=== PATIENT | female | born 1935 | race Caucasian/White ===

== ENCOUNTER 2017-09-06 23:03 | Inpatient (IN) | payer OTHER ==
[2017-09-06] MEDS ORDERED: LABETALOL HCL 5 MG/ML 20 ML MDV ONE (23:08)
[2017-09-06] MEDS ORDERED: niCARdipine/NACL/200 ML BAG IV ONE (23:08)
[2017-09-06] MEDS ORDERED: IOPAMIDOL (ISOVUE 370) 100 ML BTL IV ONE (23:12)
[2017-09-06 23:18] LABS: % IMMATURE GRANULYOCYTES 0.3 % (0.0-1.1); ABSOLUTE IMMATURE GRANULOCYTES 0.03 10^3/uL (0.00-0.10); ADD DIFF? NO; ADD MORPH? NO; ADD SCAN? NO; ATYPICAL LYMPHOCYTE FLAG 0 (0-99); FRAGMENT RBC FLAG 0 (0-99); HEMATOCRIT 39.3 % (38.0-47.0); HEMOGLOBIN 13.9 g/dL (12.6-16.3); LEFT SHIFT FLG 0 (0-99); LIPEMIA HEMOLYSIS FLAG 90 (0-99); MEAN CELL HEMOGLOBIN 33.8 pg (27.9-34.1); MEAN CELL HEMOGLOBIN CONCENTR. 35.4 g/dL (32.4-36.7); MEAN CELL VOLUME 95.6 fL (81.5-99.8); MEAN PLATELET VOLUME 10.1 fL (8.7-11.7); PLATELET CLUMPS FLAG 0 (0-99); PLATELET COUNT 256 10^3/uL (150-400); RED BLOOD CELL COUNT 4.11 10^6/uL (4.18-5.33); RED CELL DISTRIBUTION WIDTH 13.8 % (11.5-15.2)
--- NOTE | 2017-09-06 23:18 | EDPHY ---
H & P HPI/ROS: Chief Complaint: Stroke HPI: 82-year-old woman being transferred from [facility] with a stroke. Patient arrived there with right-sided weakness and neglect. Initial NIH scale or was 16. She had a noncontrast CT of the head which was unremarkable. She was given tPA. The tPA just finished prior to arrival here. Per EMS patient was last seen normal by family yesterday. There was a phone call to her earlier this evening where she was apparently unintelligible. Patient is currently non verbal and unable to provide any further history. Unavailable secondary to the patient's inability to speak PMH: Hypertension Social History: Unknown Family History: non-contributory Physical Exam: Gen: Awake, Alert HEENT: Nose: no rhinorrhea Eyes: PERRLA, EOMI Mouth: Moist mucosa Neck: Supple, no JVD Chest: nontender, lungs clear to auscultation Heart: S1, S2 normal, no murmur Abd: Soft, non-tender, no guarding Back: no CVA tenderness, no midline tenderness Ext: no edema, non-tender Skin: no rash Neuro: See NIH stroke score Constitutional: Initial Vital Signs Heart Rate 70 09/06/17 23:15 Respiratory Rate 23 H 09/06/17 23:15 Blood Pressure 220/121 H 09/06/17 23:15 O2 Sat (%) 97 09/06/17 23:15 O2 Delivery Mode Nasal Cannula O2 (L/minute) 2 Allergies/Adverse Reactions: No Known Allergies Allergy (Unverified 09/06/17 23:33) Home Medications: Medication Instructions Recorded Atorvastatin Calcium 09/06/17 CALCIUM CARBONATE 09/06/17 Freestyle Precision Jermaine 09/06/17 Januvia 50 mg 09/06/17 Lumigan 0.01% (*) 09/06/17 Multivit,Min/Folic Acid/Zcm586 09/06/17 Ritalin 20mg (*) 09/06/17 Synthroid 75 mcg (*) 09/06/17 Vitamin D3 09/06/17 Medical Decision Making - Diagnostics Imaging Results: Imaging Impressions Head CT 09/06/17 23:10 Impression: There is no acute intracranial abnormality identified on this unenhanced CT evaluation. If there is further clinical concern regarding the patient's symptoms, MR imaging is suggested, if not otherwise contraindicated. Findings were discussed with George Johnson MD at 23:19, on 09/06/2017. Head CTA 09/06/17 23:10 Impression: 1. 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 2. Atherosclerotic calcific plaque at the level of each carotid bulb and bifurcation, however there is no hemodynamically significant stenosis involving the cervical portions of the internal carotid arteries (exceeding 50% MDS). CT ANGIOGRAPHY OF THE HEAD: The major vessels of the [place] demonstrate no evidence of an aneurysm, vascular malformation, flow-limiting stenosis, or occlusion. The distal cervical, petrous, cavernous, and the supraclinoid portions of the internal carotid arteries maintain flow, although there is a moderate amount of eccentric calcific plaque involving the parasellar aspects of the ICAs and the proximal supraclinoid portions. There is a small eccentric calcific plaque seen in the distal left M1 segment, resulting in a mild eccentric stenosis. There is no intra-arterial thrombus identified. There is blood flow identified in the M2 and M3 trifurcation vessels. The A1 and A2 segments are patent, and there is no abnormality at the anterior communicating artery. The distal cervical portions of the vertebral arteries are patent. There is eccentric calcific plaque involving the posterior margin of the right vertebral artery at the skull base, however each vertebral artery remains patent and provides inflow to the basilar artery, which is normal in size. The posterior inferior cerebellar arteries and the superior cerebellar arteries are patent. The basilar tip is patent. The posterior cerebral arteries are patent. 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 The superior sagittal sinus, transverse sinuses, and major veins demonstrate no evidence of intraluminal thrombi. Impression: Atherosclerotic features, with no hemodynamically significant stenosis or acute intra-arterial thrombus. Note: All stenoses are measured using NASCET criteria. Findings were discussed with George Johnson MD at 11:50 PM, on 09/06/2017. Neck CTA 09/06/17 23:11 Impression: 1. 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 2. Atherosclerotic calcific plaque at the level of each carotid bulb and bifurcation, however there is no hemodynamically significant stenosis involving the cervical portions of the internal carotid arteries (exceeding 50% MDS). CT ANGIOGRAPHY OF THE HEAD: The major vessels of the [place] demonstrate no evidence of an aneurysm, vascular malformation, flow-limiting stenosis, or occlusion. The distal cervical, petrous, cavernous, and the supraclinoid portions of the internal carotid arteries maintain flow, although there is a moderate amount of eccentric calcific plaque involving the parasellar aspects of the ICAs and the proximal supraclinoid portions. There is a small eccentric calcific plaque seen in the distal left M1 segment, resulting in a mild eccentric stenosis. There is no intra-arterial thrombus identified. There is blood flow identified in the M2 and M3 trifurcation vessels. The A1 and A2 segments are patent, and there is no abnormality at the anterior communicating artery. The distal cervical portions of the vertebral arteries are patent. There is eccentric calcific plaque involving the posterior margin of the right vertebral artery at the skull base, however each vertebral artery remains patent and provides inflow to the basilar artery, which is normal in size. The posterior inferior cerebellar arteries and the superior cerebellar arteries are patent. The basilar tip is patent. The posterior cerebral arteries are patent. 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 The superior sagittal sinus, transverse sinuses, and major veins demonstrate no evidence of intraluminal thrombi. Impression: Atherosclerotic features, with no hemodynamically significant stenosis or acute intra-arterial thrombus. Note: All stenoses are measured using NASCET criteria. Findings were discussed with George Johnson MD at 11:50 PM, on 09/06/2017. ED Course/Re-evaluation: Patient arrived as a stroke alert [place] [facility] [place] receiving thrombolytics. Initial NIH of 16. NIH now is 9. I have discussed with , [facility] Neurology. CT scan noncontrast here shows no bleed. Will proceed with the CT angiogram. CT angio is negative for acute thrombus. There is some atherosclerotic disease. Again discussed with Dr. Roberts. He has evaluated the patient via telemedicine. He does not feel the patient will require transfer to [facility]. Patient will be admitted to the ICU for further care post CVA and thrombolysis. Case discussed with Dr. Land, hospitalist. He will admit to the ICU for further care. Critical Care Time: I spent a total of 40 minutes of critical care time in obtaining history, performing a physical exam, bedside monitoring of interventions, collecting and interpreting tests and discussion with consultants but not including time spent performing procedures. - Data Points Laboratory Results: Laboratory Results 09/06/17 23:10 09/06/17 23:10 09/06/17 09/06/17 09/06/17 23:10 23:10 23:10 WBC 10.23 10^3/uL H 10^3/uL (3.80-9.50) RBC 4.11 10^6/uL L 10^6/uL (4.18-5.33) Hgb 13.9 g/dL g/dL (12.6-16.3) Hct 39.3 % % (38.0-47.0) MCV 95.6 fL fL (81.5-99.8) MCH 33.8 pg pg (27.9-34.1) MCHC 35.4 g/dL g/dL (32.4-36.7) RDW 13.8 % % (11.5-15.2) Plt Count 256 10^3/uL 10^3/uL (150-400) MPV 10.1 fL fL (8.7-11.7) Neut % (Auto) 65.7 % % (39.3-74.2) Lymph % (Auto) 16.6 % % (15.0-45.0) Sharkey % (Auto) 11.2 % % (4.5-13.0) Eos % (Auto) 5.6 % % (0.6-7.6) Baso % (Auto) 0.6 % % (0.3-1.7) Nucleat RBC Rel Count 0.0 % % (0.0-0.2) Absolute Neuts (auto) 6.72 10^3/uL H 10^3/uL (1.70-6.50) Absolute Lymphs (auto) 1.70 10^3/uL 10^3/uL (1.00-3.00) Absolute Monos (auto) 1.15 10^3/uL H 10^3/uL (0.30-0.80) Absolute Eos (auto) 0.57 10^3/uL H 10^3/uL (0.03-0.40) Absolute Basos (auto) 0.06 10^3/uL 10^3/uL (0.02-0.10) Absolute Nucleated RBC 0.00 10^3/uL 10^3/uL (0-0.01) Immature Gran % 0.3 % % (0.0-1.1) Immature Gran # 0.03 10^3/uL 10^3/uL (0.00-0.10) PT 13.4 SEC SEC (12.0-15.0) INR 1.03 (0.83-1.16) APTT 23.7 SEC SEC (23.0-38.0) Sodium 140 mEq/L mEq/L (134-144) Potassium 4.4 mEq/L mEq/L (3.5-5.2) Chloride 101 mEq/L mEq/L (97-110) Carbon Dioxide 28 mEq/l mEq/l (22-31) Anion Gap 11 mEq/L mEq/L (8-16) BUN 27 mg/dL H mg/dL (7-23) Creatinine 1.3 mg/dL H mg/dL (0.6-1.0) Estimated GFR 39 Glucose 197 mg/dL H mg/dL (70-100) Calcium 9.7 mg/dL mg/dL (8.5-10.4) Departure - Departure Disposition: [facility] Inpatient Acute Clinical Impression: Acute ischemic stroke Condition: Serious Referrals: Patient,NotPresent [Primary Care Provider] - As per Instructions NIH Stroke Scale Date of Exam: 09/06/17 Time of Exam: 23:05 Level of Consciousness: Alert LOC Questions: Answers None LOC Commands: Performs Both Correctly Best Gaze: Partial Gaze Palsy Visual: No Visual Loss Facial Palsy: Partial Paralysis Motor Arm-Left: No Drift Motor Arm-Right: No Drift Motor Leg-Left: No Drift Motor Leg-Right: No Drift Limb Ataxis: Absent Sensory: Normal Best Language: Severe Aphasia Dysarthria: Severe Dysarthria Extinction and Inattention (Neglect): No Abnormality NIH Scale Score: 9
[2017-09-06 23:26] LABS: INR 1.03 (0.83-1.16); PROTIME(PATIENT) 13.4 SEC (12.0-15.0)
[2017-09-06 23:27] LABS: APTT 23.7 SEC (23.0-38.0)
[2017-09-06 23:29] LABS: ANION GAP 11 mEq/L (8-16); CALCIUM 9.7 mg/dL (8.5-10.4); CARBON DIOXIDE 28 mEq/l (22-31); CHLORIDE 101 mEq/L (97-110); CREATININE 1.3 mg/dL (0.6-1.0); GLOMERULAR FILTRATION RATE 39; GLUCOSE 197 mg/dL (70-100); POTASSIUM 4.4 mEq/L (3.5-5.2); SODIUM 140 mEq/L (134-144)
--- NOTE | 2017-09-07 00:48 | CPEKG ---
Heart Rate: 64 RR Interval: 938 P-R Interval: 220 QRSD Interval: 84 QT Interval: 432 QTC Interval: 446 P Dille: 71 QRS Dille: 2 T Wave Dille: 75 EKG Severity - ABNORMAL ECG - EKG Impression: SINUS RHYTHM EKG Impression: FIRST DEGREE AV BLOCK EKG Impression: BORDERLINE R WAVE PROGRESSION, ANTERIOR LEADS Electronically Signed By: George Johnson 07-Sep-2017 06:45:04
--- NOTE | 2017-09-07 00:49 | PDCONSULT ---
[facility] Note: [place] [facility] Note Demographics Consult Type Acute Stroke First Name Liza Last Name Renata Date of 1935 Age: 82 Gender Female Referring Provider Dr Johnson Time of initial page (): 09/06/2017 23:18 Time of return call (): 09/06/2017 23:19 Time Ready to Initiate Telemed Consult (): 09/06/2017 23:20 HPI 82 year old who initially presented to [facility] with stroke symptoms. She had tried to call a family member in the afternoon but could not talk on the phone that family member came over to the house and recognized her stroke symptoms with Aphasia and right-sided weakness. Based on TV shows on TV and the snacks that she had recently eaten they figured out what time her symptoms must have started. TPA was given and she was transported to [facility] at the present time she has partial Improvement of her symptoms with better mobility of her right side of her body and better ability to understand and respond to others. She is still having significant expressive language difficulty. She is seen on telemedicine camera after a CT angiogram was performed Exam Vitals: vital signs reviewed Mental Status: awake, follows commands Language: expressive aphasia Cranial Nerves extra ocular movements intact, facial droop right Motor: normal bulk, R upper extremity weakness Sensory: normal sensation Cerebellar: normal cerebellar NIHSS Time (): 09/07/2017 00:05 LOC 1a: 0 = Alert; keenly responsive LOC 1b: 2 = Answers neither questions correctly LOC Commands: 2 = Performs neither task correctly Best Gaze: 0 = Normal Visual: 0 = No visual loss Facial Palsy 2 = Partial paralysis (total or near-total paralysis of lower face ) Motor Arm L: 0 = No drift; limb holds 90 (or 45) degrees for full 10 seconds Motor Arm R: 1 = Drift; limb holds 90 (or 45) degrees, but drifts down before full 10 seconds; does not hit bed or other support Motor Leg L: 0 = No drift; leg holds 30-degree position for full 5 seconds Motor Leg R: 0 = No drift; leg holds 30-degree position for full 5 seconds Limb Ataxia 0 = Absent Sensory: 0 = Normal; no sensory loss Best Language: 2 = Severe aphasia; all communication is through fragmentary expression Dysarthria: 2 = Severe dysarthria; patient's speech is so slurred as to be unintelligible Extinction + Inattention: 0 = No abnormality NIHSS: [address]: no bleed, early infarction with loss of mancera-white definition in insula and left lateral frontal lobe. CTA Head no large vessel occlusion CTA Neck patent vessels Assessment: Acute Ischemic Stroke, Left MCA stroke, s/p IV tPA in [place] with partial improvement of her syndrome. There is early infarction present c/w her symptoms and no large artery occlusion; therefore, no thrombectomy is indicated. Plan Labs HgbA1c, Lipid Panel Imaging MRI brain without Diagnostic test echocardiogram with bubble Therapy/Eval NPO until cleared by swallow evaluation, PT/OT, Speech/Swallow therapy consult tPA Administration Recommendations: BP goal< 180/100 for 24hrs post tPA administration, Use Labetolol 10-20mg IV prn or Nicardipine gtt to maintain BP parameters, No antiplatelets or anticoagulants for next 24 hrs unless indicated for emergent IA procedure or other life threatening situation, ICU admission Other telemetry monitoring, I have discussed my recommendations with the referring provider Disposition transfer to ICU
[2017-09-07] MEDS ORDERED: ONDANSETRON DISINTEGRATING 4 MG TAB PO PRN (01:11)
[2017-09-07] MEDS ORDERED: ACETAMINOPHEN 325 MG TAB PO PRN (01:11)
[2017-09-07] MEDS ORDERED: ONDANSETRON 4 MG/2 ML VIAL IVP PRN (01:11)
[2017-09-07] MEDS: NS 1,000 ML IV SCH ×2 (01:16→08:58)
--- NOTE | 2017-09-07 01:48 | PDGENHP ---
History and Physical - Chief Complaint Stroke - History of Present Illness 82 yo F w/ DM and HTN presents after acute stroke. Patient was last seen normal at 3 PM. Patient herself symptoms of difficulty speaking and right sided weakness started around 7 PM. She presented to a hospital in [place] where she was give t-Pa around 9:30 with a NIHSS of 16 around that time. Upon arrival here her R sided weakness had improved and NIHSS documented by neurologist via camera was 11. At the time of my evaluation patient with persistent, severe aphasia and dysarthria, subtle R facial droop, and mild RUE dysmetria. She follows commands and communicates with hand signals effectively. History Information - Allergies/Home Medication List Allergies/Adverse Reactions: No Known Allergies Allergy (Unverified 09/06/17 23:33) Home Medications: Atorvastatin Calcium 09/06/17 [Last Taken Unknown] CALCIUM CARBONATE 09/06/17 [Last Taken Unknown] Freestyle Precision Jermaine 09/06/17 [Last Taken Unknown] Januvia 50 mg 09/06/17 [Last Taken Unknown] Lumigan 0.01% (*) 09/06/17 [Last Taken Unknown] Multivit,Min/Folic Acid/Ymg431 09/06/17 [Last Taken Unknown] Ritalin 20mg (*) 09/06/17 [Last Taken Unknown] Synthroid 75 mcg (*) 09/06/17 [Last Taken Unknown] Vitamin D3 09/06/17 [Last Taken Unknown] I have personally reviewed and updated: family history, medical history - Past Medical History diabetes type 2, hypertension - Family History Negative for: stroke - Social History Smoking Status: Unknown if ever smoked Review of Systems Review of Systems: ROS: 10pt was reviewed & negative except for what was stated in HPI & below Physical Exam Physical Exam: Temp Pulse Resp BP Pulse Ox 36.7 C 60 19 172/60 H 94 09/07/17 00:45 09/07/17 01:00 09/07/17 01:00 09/07/17 01:00 09/07/17 01:00 Constitutional: no apparent distress, not in pain Eyes: PERRL, EOMI Ears, Nose, Mouth, Throat: moist mucous membranes, no oral mucosal ulcers Cardiovascular: regular rate and rhythym, no murmur, rub, or gallop Respiratory: no respiratory distress, no rales or rhonchi Gastrointestinal: normoactive bowel sounds, soft, non-tender abdomen Skin: warm, normal color Musculoskeletal: no muscle tenderness, No muscular tenderness Neurologic: other (NIHSS 8 for aphasia, dysrathria, subtle R facial droop, and RUE dysmetria) Psychiatric: interacting appropriately, not anxious Lab Data & Imaging Review 09/06/17 23:10 09/06/17 23:10 WBC 10.23 10^3/uL (3.80-9.50) H 09/06/17 23:10 RBC 4.11 10^6/uL (4.18-5.33) L 09/06/17 23:10 Hgb 13.9 g/dL (12.6-16.3) 09/06/17 23:10 Hct 39.3 % (38.0-47.0) 09/06/17 23:10 MCV 95.6 fL (81.5-99.8) 09/06/17 23:10 MCH 33.8 pg (27.9-34.1) 09/06/17 23:10 MCHC 35.4 g/dL (32.4-36.7) 09/06/17 23:10 RDW 13.8 % (11.5-15.2) 09/06/17 23:10 Plt Count 256 10^3/uL (150-400) 09/06/17 23:10 MPV 10.1 fL (8.7-11.7) 09/06/17 23:10 Neut % (Auto) 65.7 % (39.3-74.2) 09/06/17 23:10 Lymph % (Auto) 16.6 % (15.0-45.0) 09/06/17 23:10 Bowie % (Auto) 11.2 % (4.5-13.0) 09/06/17 23:10 Eos % (Auto) 5.6 % (0.6-7.6) 09/06/17 23:10 Baso % (Auto) 0.6 % (0.3-1.7) 09/06/17 23:10 Nucleat RBC Rel Count 0.0 % (0.0-0.2) 09/06/17 23:10 Absolute Neuts (auto) 6.72 10^3/uL (1.70-6.50) H 09/06/17 23:10 Absolute Lymphs (auto) 1.70 10^3/uL (1.00-3.00) 09/06/17 23:10 Absolute Monos (auto) 1.15 10^3/uL (0.30-0.80) H 09/06/17 23:10 Absolute Eos (auto) 0.57 10^3/uL (0.03-0.40) H 09/06/17 23:10 Absolute Basos (auto) 0.06 10^3/uL (0.02-0.10) 09/06/17 23:10 Absolute Nucleated RBC 0.00 10^3/uL (0-0.01) 09/06/17 23:10 Immature Gran % 0.3 % (0.0-1.1) 09/06/17 23:10 Immature Gran # 0.03 10^3/uL (0.00-0.10) 09/06/17 23:10 PT 13.4 SEC (12.0-15.0) 09/06/17 23:10 INR 1.03 (0.83-1.16) 09/06/17 23:10 APTT 23.7 SEC (23.0-38.0) 09/06/17 23:10 Sodium 140 mEq/L (134-144) 09/06/17 23:10 Potassium 4.4 mEq/L (3.5-5.2) 09/06/17 23:10 Chloride 101 mEq/L (97-110) 09/06/17 23:10 Carbon Dioxide 28 mEq/l (22-31) 09/06/17 23:10 Anion Gap 11 mEq/L (8-16) 09/06/17 23:10 BUN 27 mg/dL (7-23) H 09/06/17 23:10 Creatinine 1.3 mg/dL (0.6-1.0) H 09/06/17 23:10 Estimated GFR 39 09/06/17 23:10 Glucose 197 mg/dL (70-100) H 09/06/17 23:10 Calcium 9.7 mg/dL (8.5-10.4) 09/06/17 23:10 Imaging Review: CT head without hemorrhage; CTA Head/neck shows stenosis or R vertebral artery and atherosclerosis of b/l carotid bulbs without hemodynamic compromise. Visualized and Interpreted EKG results: Yes EKG Interpretation: Positive for: normal sinsus rhythm Assessment & Plan Assessment: 82 yo F w/ HTN and DM presents with acute ischemic stroke, now s/p t-PA. Plan: 1. Acute ischemic stroke - NIHSS 16 at time of presentation to [facility]; 11 on arrival here and 8 on my evaluation. She continues to demonstrate severe aphasia , dysarthria, and subtle R facial droop. She received t-PA around [address] without hemorrhage, CTA head/neck with R vertebral stenosis and b/l carotid bulb atherosclerosis but no acute culprit lesion identified. ECG in NSR on admission. - Admit to ICU for 24 hours post t-PA - Monitor on telemetry - Maintain BP <108/105 for 24 hours - MRI Brain, TTE w/ bubble ordered - Check lipid panel, A1c with morning labs - PT/OT/CHARACTER IMPERSONATOR evaluations - Will start ASA 325 mg qD 09/08(at least 24 hours post t-PA) - High intensity statin indicated 2. DM - Unknown control, patient on Januvia as outpatient. Checking A1c, will manage with SSI standard dose. 3. Hypothyroid - On LTX as outpatient 4. HTN - Does not appear to be on medications for this per list provided. Acute control as above. Diet - NPO pending swallow evaluation Code - Full Ppx - SCDs Dispo - Admit to ICU, observation status
[2017-09-07] MEDS ORDERED: D10W 250 ML PRN HYPOGLYCEMIA IV (02:30)
[2017-09-07 05:01] LABS: % IMMATURE GRANULYOCYTES 0.1 % (0.0-1.1); ABSOLUTE IMMATURE GRANULOCYTES 0.01 10^3/uL (0.00-0.10); ADD DIFF? NO; ADD MORPH? NO; ADD SCAN? NO; ATYPICAL LYMPHOCYTE FLAG 10 (0-99); FRAGMENT RBC FLAG 0 (0-99); HEMATOCRIT 35.9 % (38.0-47.0); HEMOGLOBIN 12.3 g/dL (12.6-16.3); LEFT SHIFT FLG 0 (0-99); LIPEMIA HEMOLYSIS FLAG 90 (0-99); MEAN CELL HEMOGLOBIN 33.1 pg (27.9-34.1); MEAN CELL HEMOGLOBIN CONCENTR. 34.3 g/dL (32.4-36.7); MEAN CELL VOLUME 96.5 fL (81.5-99.8); MEAN PLATELET VOLUME 10.2 fL (8.7-11.7); PLATELET CLUMPS FLAG 0 (0-99); PLATELET COUNT 236 10^3/uL (150-400); RED BLOOD CELL COUNT 3.72 10^6/uL (4.18-5.33); RED CELL DISTRIBUTION WIDTH 13.8 % (11.5-15.2)
[2017-09-07 05:14] LABS: ANION GAP 10 mEq/L (8-16); CALCIUM 9.1 mg/dL (8.5-10.4); CARBON DIOXIDE 23 mEq/l (22-31); CHLORIDE 108 mEq/L (97-110); CREATININE 1.2 mg/dL (0.6-1.0); GLOMERULAR FILTRATION RATE 43; GLUCOSE 143 mg/dL (70-100); POTASSIUM 4.7 mEq/L (3.5-5.2); SODIUM 141 mEq/L (134-144)
[2017-09-07] MEDS: INSULIN LISPRO 100 UNIT/ML SC SCH ×3 (08:27→19:17)
[2017-09-07] MEDS: ATORVASTATIN CALCIUM 40 MG TAB PO SCH (09:01)
[2017-09-07 09:24] LABS: HEMOGLOBIN A1C 8.4 % (4.0-6.0)
--- NOTE | 2017-09-07 10:11 | GCON ---
[f rep st] CONSULTATION NEUROLOGIC CONSULTATION REFERRING PHYSICIAN: Babatunde Souza MD HISTORY: The patient is an 82-year-old woman whom I am asked to see in neurologic consultation elvis ching acute stroke. She was doing well yesterday, with the last known normal of around 3 p.m.. Kae y was speaking to her around 7:00 p.m., when she apparently developed impaired speech and had right-s ided weakness. She went to [place], where she got tPA around 9:30 and had an NIH Stroke Scale doc umented at 16. She was then transferred to our institution, and Stroke Neurology documented NIH Stro ke Scale of 11. She has had imaging showing no acute hemorrhage or stroke, and no severe large-vesse l stenoses. She has remained aphasic, but the right-sided weakness has much improved. The patient can't effectively communicate for more history. PAST MEDICAL HISTORY: Obtained from reviewing the medical records available to me. There is type 2 diabetes and hypertension. FAMILY HISTORY: Negative for stroke. We do not know about smoking or alcohol consumption. HOME MEDICATIONS: Include a statin, Januvia, Lumigan, Ritalin, Synthroid, vitamin D. Aspirin is not listed, but I am not sure if that is something she takes or does not take. In the hospital, she has received tPA and can start aspirin tomorrow, but not for the first 24 hours. PHYSICAL EXAMINATION: VITAL SIGNS: Blood pressure 151/47, pulse of 54, respirations 12, temperature 36.6. GENERAL: She is well developed, in no acute distress. NECK: Supple with no bruits or hubert s. CARDIAC: Regular rate and rhythm. No murmur. NEUROLOGIC: Awake and alert. Orientation questi ons are characterized by limited aphasia, but seems to recognize month and year and general location. She scores an NIH Stroke Scale of 6. She has severe aphasia, which is predominantly expressive, bu t can mouth a few words with dysarthria. Pupils 3 mm and reactive. No visual field loss. Extraocul ar movements are intact. Normal facial sensations and strength on the left. Sensation on the right is probably intact. On the right, there is a mild facial droop. Palate elevates symmetrically. Ton tabitha protrudes midline. Hearing preserved. Motor exam: There is no drift in the upper or lower extr emities, although there is mild weakness in the right arm and right leg, relative to the left, with s ome limitation on resistance. However, this does not drop her NIH stroke scale. The sensation is al so seemingly intact. Reflexes 1+. Right Babinski sign. The labs were reviewed, as well as diagnostic studies. IMPRESSION: Total unit time of 55 minutes. The patient has a [employer] Stroke S blaze of 6 and has had an acute left middle cerebral artery territory ischemic infarction, without any evidence of a large-vessel occlusion on current imaging. PLAN: She received tPA and will be continued in the ICU for the next 12 hours, or 24 hours for stabi lity, and then to the floor and begin rehab therapies. Prognosis is getting better because of the im provement that we are seeing already on the right side, but she still has profound aphasia, and we do not know the ultimate outcome of that yet. Aspirin will be appropriate after 24 hours, and resume h er statin therapy. She is currently n.p.o. because of failing swallowing study at bedside. /[id number]/MODL
--- NOTE | 2017-09-07 11:47 | GCON ---
[f rep st] CONSULTATION REASON FOR ADMISSION: Acute stroke. HISTORY OF PRESENT ILLNESS: The patient is a very pleasant 82-year-old white female with a past [facility] history of hypothyroidism, hypertension, and type 2 diabetes. She was transferred from [facility] after suffering an acute stroke. She was given tPA and subsequently transferred here. Sh clovis initially had significant right-sided weakness, and this has improved. She still continues to have significant aphasia and a right facial droop. Patient is awake and alert and is able answer yes/no questions. She is not currently in any pain and is not breathless but is somewhat frustrated with in ability to communicate. PAST MEDICAL HISTORY: Significant for diabetes, hypertension, hypothyroidism. ALLERGIES: None known to medications. SOCIAL HISTORY: No history of tobacco use. No history of alcohol use. PHYSICAL EXAMINATION: VITAL SIGNS: Blood pressure 156/62, pulse 51, respirations 15, temperature 36 .6, oxygen saturation 93% on room air. GENERAL: She is a well-developed, well-nourished, elderly wh ite female, who is resting comfortably in no acute distress HEENT: Eyes are PERRLA, EOMI. Throat sh ows no erythema or tonsillar hypertrophy. NECK: Supple. There is no cervical adenopathy. HEART: Regular rate and rhythm with a 2/6 systolic murmur at the left sternal border without radiation. DANELLE GS: Diminished breath sounds but no wheeze. ABDOMEN: Soft, nontender. Bowel sounds are present in all 4 quadrants. EXTREMITIES: No clubbing, cyanosis, or edema. NEURO: Patient is mostly aphasic; is able to verbalize yes/no. She has some right upper extremity weakness. LABORATORIES: White count is 8.7, hemoglobin 12, hematocrit 35, platelet count is 236. Sodium 141, potassium 4.7, chloride 108, CO2 23, BUN 24, creatinine 1.2, glucose 143. IMPRESSION: 1. Acute stroke. 2. Aphasia. 3. Right upper extremity weakness. 4. Diabetes. 5. Hypothyroidism. 6. Hypertension. RECOMMENDATIONS: 1. Will continue the patient in the intensive care unit for 24 total hours. 2. PT and OT. 3. Speech to see. 4. DVT and PE prophylaxis. 5. Stress ulcer prophylaxis. 6. Neurology has seen the patient. /[id number]/MODL
--- NOTE | 2017-09-07 11:48 | HOSPPROG ---
Hospitalist Progress Note Assessment/Plan: 82 yo F w/ HTN and DM new to my care 09/07 presents with acute right sided weakness and aphasia found to have: #. Acute ischemic stroke s/p TPA with improving right sided weakness and persistent Broca's aphasia -Continue ICU care for 24 hours post tpa -repeat MR pending -neuro consult reviewed -continue asa/statin/bp control -cont pt/ot # Dysphagia -pt failed bedside swallow. -npo for now -cont st #h/o htn -main sbp<180 x 24 hours # DM a1c not at goal (8.4) -cont to monitor sugar and treat per protocol # Hypothyroid -will start iv levothyroxine at 1/2 normal po dose Diet - NPO pending swallow evaluation Code - Full Ppx - SCDs Dispo - Admit to ICU, change to inpatient status Subjective: improving right sided strength. still with dense aphasia Objective: Vital Signs Temp Pulse Resp BP Pulse Ox 36.6 C 56 L 17 152/61 H 95 09/07/17 10:15 09/07/17 11:15 09/07/17 11:15 09/07/17 11:15 09/07/17 11:15 Laboratory Results 09/07/17 04:55 09/07/17 04:55 09/06/17 09/07/17 09/08/17 05:59 05:59 05:59 Intake Total 1200 Output Total 675 Balance 525 PT 13.4 SEC (12.0-15.0) 09/06/17 23:10 INR 1.03 (0.83-1.16) 09/06/17 23:10 - Physical Exam Constitutional: no apparent distress, appears nourished, not in pain Cardiovascular: regular rate and rhythym, no murmur, rub, or gallop Respiratory: no respiratory distress, no rales or rhonchi, clear to auscultation Gastrointestinal: normoactive bowel sounds, soft, non-tender abdomen, no palpable masses Neurologic: AAOx3, CN II-XII Intact, other (dense aphasia), No facial droop ICD10 Worksheet Patient Problems: Problems Problem Status Onset Acute ischemic stroke Acute
--- NOTE | 2017-09-07 12:42 | PDMN ---
Medical Necessity Medical necessity: Pt meets INPT criteria per MD. Est. LOS >2 MN for eval/tx of acute ischemic stroke s/p TPA with improving R-sided weakness and persistent Broca's aphasia, dysphagia; hx DM, hypothyroid per MD progress note 09/07/17.
--- NOTE | 2017-09-07 15:59 | ECHO ---
[email or web address] [address] Main: [phone] Fax: Transthoracic Echocardiogram Name: YAO GUZMAN MR#: [id number] Study Date: 09/07/2017 Study Time: 08:21 AM Date of : 1935 Age: 82 year(s) Height: 167.6 cm (66 in.) Weight: 83.92 kg (185 lb.) BSA: 1.93 m2 Gender: Female Examination: Echo Indication: Acute Ischemic Stroke, eval for embolic source Image Quality: Contrast: Requested by: Babatunde Cortez BP: 142 mmHg/46 mmHg Heart Rate: Rhythm: Normal sinus rhythm Indication: Acute Ischemic Stroke, eval for embolic source Procedure Staff Cloth Covered Helmet Puller: Damien Fernandez Reading Physician: Dewayne Peres Requesting Provider: Conclusions: Global hypercontractility of the left ventricle. EF is 76 %. There is mild focal basilar anteroseptal hypertrophy with no flow gradient. An agitated saline study was performed and was negative for intracardiac shunting. Trivial to mild mitral regurgitation. Mild aortic cusp calcification is noted. Mild tricuspid regurgitation is present. Measurements: Chambers Valvular Assessment AV/MV Valvular Assessment TV/PV Normal Normal Normal Name Value Range Name Value Range Name Value Range Ao Oralia (MM): 2.6 cm (2.2 cm-3.7 AV Vmax: 1.06 m/s (1 m/s-1.7 TR Vmax: 3.16 mm/s ( - ) cm) m/s) TR PGmax: 40 mmHg ( - ) IVSd (2D): 0.8 cm (0.6 cm-1.1 AV maxP mmHg ( - ) syst. PAP: 45 mmHg ( - ) cm) LVOT Vmax: 1.07 m/s (0.7 m/s-1.1 LVDd (2D): 3.4 cm (3.9 cm-5.3 m/s) cm) MV E Vmax: 0.93 m/s ( - ) LVDs (2D): 1.9 cm (2.1 cm-4 MV A Vmax: 1.12 m/s ( - ) cm) MV E/A: 0.83 ( - ) LVPWd (2D): 1.0 cm ( - ) LVEF (2D): 76 (>=54 %) Continued Measurements: Chambers Valvular Assessment AV/MV Valvular Assessment TV/PV Name Value Name Value Name Value LADs Lon.1 cm MV E/E' Septal: 18.80 CVP (est.): 5 mmHg LA Area: 15.8 cm2 MV E/E' Lateral: 19.90 Patient: YAO GUZMAN Study Date: 09/07/2017 Page 1 of 2 08:21 AM LA Volume: 40 ml LA Volume Index: 20.7 ml/m2 Findings: Left Ventricle: Normal size left ventricle. Global hypercontractility of the left ventricle. EF is 76 %. No regional wall motion abnormality. There is mild focal basilar anteroseptal hypertrophy with no flow gradient.Diastolic dysfunction is present. . Right Ventricle: Normal size right ventricle. Normal RV function. Left Atrium: The left atrium is normal in size. An agitated saline study was performed and was negative for intracardiac shunting. Right Atrium: The right atrium is normal in size. Mitral Valve: Mild mitral valve leaflet calcification is present. Trivial to mild mitral regurgitation. Aortic Valve: The aortic valve is tri-leaflet. Mild aortic cusp calcification is noted. There is no aortic valve regurgitation. No aortic valve stenosis is present. Tricuspid Valve: The tricuspid valve appears normal. Mild tricuspid regurgitation is present. The pulmonary artery pressure is mildly increased. Pulmonic Valve: The pulmonic valve is normal in appearance and function. Aorta: The aorta is normal. Pericardium: No pericardial effusion. (No Signature Object) Patient: YAO GUZMAN Study Date: 09/07/2017 Page 2 of 2 08:21 AM [id number]
[2017-09-07] MEDS: LEVOTHYROXINE 100 MCG/5 ML SYR IVP SCH (16:46)
[2017-09-08] MEDS: NS 1,000 ML IV SCH (06:38)
[2017-09-08 06:42] LABS: CHOLESTEROL 127 mg/dL (140-220); CHOLESTEROL/HDL RATIO 3.53 RATIO (1.00-4.44); HIGH DENSITY LIPOPROTEIN 36 mg/dL (40-85); LDL/HDL RATIO 1.94 RATIO (1.00-3.22); LOW DENSITY LIPOPROTEIN 70 mg/dL (80-100); NON-HIGH DENSITY LIPOPROTEIN 91 mg/dL (90-129); TRIGLYCERIDE 105 mg/dL (35-135); VERY LOW DENSITY LIPOPROTEINS 21 mg/dL (8-25)
--- NOTE | 2017-09-08 08:22 | NEUROPROG ---
Assessment: Acute stroke with stable deficits. Slightly improved aphasia. Plan to begin aggressive rehab therapies and then determine disposition. Can start Aspirin and Statin as well. Subjective: Pt aphasic but expressing no complaints. Stable per nurse. Objective: Vital Signs Temp Pulse Resp BP Pulse Ox 37.0 C 67 14 112/67 100 09/08/17 03:06 09/08/17 03:06 09/08/17 03:06 09/08/17 03:06 09/08/17 03:06 09/07/17 09/08/17 09/09/17 05:59 05:59 05:59 Intake Total 954 Output Total 650 Balance 304 PT 13.4 SEC (12.0-15.0) 09/06/17 23:10 INR 1.03 (0.83-1.16) 09/06/17 23:10 Alert with expressive language impairment, profoundly difficult speaking but can write fairly well. Comprehension is very good. Mild right side weakness. MRI shows acute left MCA stroke in distal distribution. Allergies/Adverse Reactions: No Known Allergies Allergy (Unverified 09/06/17 23:33)
[2017-09-08] MEDS: ASPIRIN 325 MG TAB PO SCH (08:34)
[2017-09-08] MEDS: ATORVASTATIN CALCIUM 40 MG TAB PO SCH (08:34)
[2017-09-08] MEDS: INSULIN LISPRO 100 UNIT/ML SC SCH ×3 (08:35→18:20)
--- NOTE | 2017-09-08 09:37 | PDINTPN ---
Public Affairs Specialist Progress Note Assessment/Plan: Assessment: * Acute stroke-status post tPA. Continues to improve. Still significant aphasic, but able to speak few words. * Aphasia-improved * Right upper extremity weakness * Diabetes-blood sugar controlled * Hypertension * Hypothyroid Plan: Continue PT and OT Speech therapy Ambulation Likely okay for transfer to floor Subjective: Comfortable. Up ambulating with PT. In good spirits. Objective: Vital Signs Temp Pulse Resp BP Pulse Ox 37.0 C 67 14 112/67 100 09/08/17 03:06 09/08/17 03:06 09/08/17 03:06 09/08/17 03:06 09/08/17 03:06 09/07/17 09/08/17 09/09/17 05:59 05:59 05:59 Intake Total 954 Output Total 650 Balance 304 PT 13.4 SEC (12.0-15.0) 09/06/17 23:10 INR 1.03 (0.83-1.16) 09/06/17 23:10 Physical Exam - Physical Exam General Appearance: alert, no apparent distress EENT: PERRL/EOMI Neck: non-tender, full range of motion, supple, normal inspection Respiratory: chest non-tender, lungs clear, normal breath sounds Cardiac/Chest: normal peripheral pulses, regular rate, rhythm Peripheral Pulses: 2+: carotid (R), carotid (L), femoral (R), femoral (L), dorsalis-pedis (R), dorsalis-pedis (L) Abdomen: normal bowel sounds, non-tender, soft Pelvic Exam: deferred Rectal: deferred Skin: normal color, warm/dry Extremities: normal range of motion, non-tender, normal inspection, normal capillary refill Neuro/Psych: alert ICD10 Worksheet Patient Problems: Problems Problem Status Onset Acute ischemic stroke Acute
[2017-09-08] MEDS: LEVOTHYROXINE 100 MCG/5 ML SYR IVP SCH (10:27)
[2017-09-08] MEDS ORDERED: LEVOTHYROXINE 75 MCG TAB PO SCH (10:45)
--- NOTE | 2017-09-08 10:45 | HOSPPROG ---
Hospitalist Progress Note Assessment/Plan: 82 yo F w/ HTN and DM new to my care 09/07 presents with acute right sided weakness and aphasia found to have: #. Acute ischemic stroke s/p TPA with improving right sided weakness and persistent apraxia/ aphasia -neuro consult reviewed -continue asa/statin/bp control -cont pt/ot # Dysphagia -pt failed bedside swallow. -npo for now -cont st #h/o htn -main sbp<180 x 24 hours # DM a1c not at goal (8.4) -cont to monitor sugar and treat per protocol -damaris resume januvia # Hypothyroid -will resume home dose of thyroid replacement Diet - NPO pending swallow evaluation Code - Full Ppx - SCDs Dispo - transfer to inpatient rehab Subjective: without new complaints. continues to have difficulty speaking Objective: Vital Signs Temp Pulse Resp BP Pulse Ox 37.0 C 53 L 15 162/69 H 92 09/08/17 03:06 09/08/17 08:00 09/08/17 08:00 09/08/17 08:00 09/08/17 08:00 09/07/17 09/08/17 09/09/17 05:59 05:59 05:59 Intake Total 954 Output Total 650 Balance 304 PT 13.4 SEC (12.0-15.0) 09/06/17 23:10 INR 1.03 (0.83-1.16) 09/06/17 23:10 - Physical Exam Constitutional: no apparent distress, appears nourished, not in pain Cardiovascular: regular rate and rhythym, no murmur, rub, or gallop Respiratory: no respiratory distress, no rales or rhonchi, clear to auscultation Gastrointestinal: normoactive bowel sounds, soft, non-tender abdomen, no palpable masses Neurologic: other (slight rt facial droop othewise cn 2-12 apear intact) ICD10 Worksheet Patient Problems: Problems Problem Status Onset Acute ischemic stroke Acute
--- NOTE | 2017-09-08 11:01 | ASMTCMCOM ---
CM Note CM Note Notes: Pt admitted with CVA. Pt lives in [place]. Plan is for Inpt Rehab eval on Sunday. Son would prefer to drive pt if accepted. Pt will likely tx to floor today. C/M to follow. Date Signed: 09/08/2017 11:01 AM Electronically Signed By:Humera Servin LCSW
[2017-09-09] MEDS: LEVOTHYROXINE 100 MCG TAB PO SCH (07:24)
[2017-09-09] MEDS: SITAGLIPTIN PHOSPHATE 50 MG PO SCH (08:08)
[2017-09-09] MEDS: ATORVASTATIN CALCIUM 40 MG TAB PO SCH (08:08)
[2017-09-09] MEDS: ASPIRIN 325 MG TAB PO SCH (08:08)
[2017-09-09] MEDS: INSULIN LISPRO 100 UNIT/ML SC SCH ×3 (08:10→17:18)
[2017-09-09] MEDS ORDERED: SITAGLIPTIN PHOSPHATE 50 MG PO SCH (09:00)
[2017-09-09] MEDS ORDERED: LEVOTHYROXINE 100 MCG TAB PO SCH (10:40)
--- NOTE | 2017-09-09 11:40 | NEUROPROG ---
Assessment: Pt with improving aphasia and ready for rehab. I had a 30 minute discussion with patient and family, mainly counseling and coordination of care. Objective: Vital Signs Temp Pulse Resp BP Pulse Ox 36.7 C 61 15 161/72 H 93 09/09/17 07:34 09/09/17 07:34 09/09/17 07:34 09/09/17 07:34 09/09/17 07:34 09/08/17 09/09/17 09/10/17 05:59 05:59 05:59 Intake Total 954 840 Output Total 650 Balance 304 840 PT 13.4 SEC (12.0-15.0) 09/06/17 23:10 INR 1.03 (0.83-1.16) 09/06/17 23:10 Allergies/Adverse Reactions: No Known Allergies Allergy (Unverified 09/06/17 23:33)
--- NOTE | 2017-09-09 13:40 | HOSPPROG ---
Hospitalist Progress Note Assessment/Plan: 82 yo F w/ HTN and DM new to my care 09/07 presents with acute right sided weakness and aphasia found to have: #. Acute ischemic stroke s/p TPA with improving right sided weakness and persistent apraxia/ aphasia -neuro consult reviewed -continue asa/statin/bp control -cont pt/ot # Dysphagia -pt failed bedside swallow. -npo for now -cont st #h/o htn -main sbp<180 x 24 hours # DM a1c not at goal (8.4) -cont to monitor sugar and treat per protocol -will resume januvia and ADD metformin despite ckd -monitor renal function as an oupt while on metformin #ckd -check bmp 09/10 # Hypothyroid -will resume home dose of thyroid replacement Diet - NPO pending swallow evaluation Code - Full Ppx - SCDs Dispo - transfer to inpatient rehab consult pending Subjective: improving speech. denies new deficits Objective: Vital Signs Temp Pulse Resp BP Pulse Ox 36.7 C 61 15 161/72 H 93 09/09/17 07:34 09/09/17 07:34 09/09/17 07:34 09/09/17 07:34 09/09/17 07:34 09/08/17 09/09/17 09/10/17 05:59 05:59 05:59 Intake Total 954 840 Output Total 650 Balance 304 840 PT 13.4 SEC (12.0-15.0) 09/06/17 23:10 INR 1.03 (0.83-1.16) 09/06/17 23:10 - Physical Exam Constitutional: no apparent distress, appears nourished, not in pain Ears, Nose, Mouth, Throat: moist mucous membranes, hearing normal, ears appear normal, no oral mucosal ulcers Cardiovascular: regular rate and rhythym, no murmur, rub, or gallop Respiratory: no respiratory distress, no rales or rhonchi, clear to auscultation Neurologic: facial droop (slight on right, persistent aphasia) ICD10 Worksheet Patient Problems: Problems Problem Status Onset Acute ischemic stroke Acute
[2017-09-09] MEDS ORDERED: FLU VACC QS 2017-18 (3YR+)/PF 0.5 ML SYR (FLUARIX QUAD) IM ONE (17:19)
[2017-09-09] MEDS: metFORMIN HCL 500 MG TAB PO SCH (17:37)
[2017-09-10 04:42] LABS: % IMMATURE GRANULYOCYTES 0.2 % (0.0-1.1); ABSOLUTE IMMATURE GRANULOCYTES 0.02 10^3/uL (0.00-0.10); ADD DIFF? NO; ADD MORPH? NO; ADD SCAN? NO; ANION GAP 11 mEq/L (8-16); ATYPICAL LYMPHOCYTE FLAG 0 (0-99); CALCIUM 9.1 mg/dL (8.5-10.4); CARBON DIOXIDE 23 mEq/l (22-31); CHLORIDE 107 mEq/L (97-110); CREATININE 1.2 mg/dL (0.6-1.0); FRAGMENT RBC FLAG 0 (0-99); GLOMERULAR FILTRATION RATE 43; GLUCOSE 123 mg/dL (70-100); HEMATOCRIT 36.5 % (38.0-47.0); LEFT SHIFT FLG 0 (0-99); LIPEMIA HEMOLYSIS FLAG 90 (0-99); MEAN CELL HEMOGLOBIN CONCENTR. 35.6 g/dL (32.4-36.7); MEAN CELL VOLUME 95.5 fL (81.5-99.8); MEAN PLATELET VOLUME 9.8 fL (8.7-11.7); PLATELET CLUMPS FLAG 0 (0-99); PLATELET COUNT 245 10^3/uL (150-400); RED BLOOD CELL COUNT 3.82 10^6/uL (4.18-5.33); RED CELL DISTRIBUTION WIDTH 14.1 % (11.5-15.2); SODIUM 141 mEq/L (134-144)
[2017-09-10] MEDS: LEVOTHYROXINE 100 MCG TAB PO SCH (05:59)
[2017-09-10 07:19] VITALS: TEMP 97.8
[2017-09-10] MEDS: SITAGLIPTIN PHOSPHATE 50 MG PO SCH (08:49)
[2017-09-10] MEDS: metFORMIN HCL 500 MG TAB PO SCH (08:50)
[2017-09-10] MEDS: ATORVASTATIN CALCIUM 40 MG TAB PO SCH (08:50)
[2017-09-10] MEDS: ASPIRIN 325 MG TAB PO SCH (08:50)
[2017-09-10] MEDS: INSULIN LISPRO 100 UNIT/ML SC SCH ×2 (08:51→12:24)
[2017-09-10 11:56] VITALS: BP 149/74; PULSE 69; RESP 21; O2SAT 93
--- NOTE | 2017-09-10 14:09 | PDIAF ---
- Diagnosis Diagnosis: cva Code Status: Full Code - Medication Management Discharge Medications: Medications to Continue on Transfer Levothyroxine [Synthroid 75 mcg (*)] 75 mcg PO WETHFRSA 09/06/17 [Last Taken ] SITAGLIPTIN PHOSPHATE [Januvia 50 mg] 50 mg PO DAILY 09/06/17 [Last Taken ] Levothyroxine [Synthroid 100 mcg (*)] 100 mcg PO SUMOTU 09/07/17 [Last Taken ] Acetaminophen [Tylenol 325mg (*)] 650 mg PO Q4HRS PRN tab 09/10/17 [Last Taken Unknown] Aspirin [Aspirin 325 mg (*)] 325 mg PO DAILY tab 09/10/17 [Last Taken Unknown] Atorvastatin Calcium [Lipitor 40 mg (*)] 40 mg PO DAILY tab 09/10/17 [Last Taken Unknown] metFORMIN HCL [Glucophage 500 mg (*)] 500 mg PO DAILY tab 09/10/17 [Last Taken Unknown] Discharge Medications: Refer to the Discharge Home Medication list for PRN reason. PICC Care - Routine: N/A - Orders Services needed: Registered Nurse, Physical Therapy, Occupational Therapy, Speech Language Pathologist Diet Recommendation: no restrictions on diet Diet Texture: Dysphagia 3 - Advanced - Moist, Bite-Size, Thin Liquids, Meds Crushed in Puree - Follow Up Care Current Providers and Referrals: Patient,NotPresent [Primary Care Provider] - As per Instructions
--- NOTE | 2017-09-10 14:55 | ASMTCMCOM ---
CM Note CM Note Notes: Pt accepted by [facility] Inpt Rehab, confirmed with ravi. She will dc there today around 3 pm. Met w/pt and family and they are in agreement w/dc poc. Date Signed: 09/10/2017 02:54 PM Electronically Signed By:Odessa Doshi RN
--- NOTE | 2017-09-10 22:02 | GDS ---
[f rep st] DISCHARGE SUMMARY DISCHARGE DIAGNOSES: 1. Acute ischemic stroke. 2. Dysphagia. 3. Hypertension. 4. Diabetes mellitus. 5. Chronic kidney disease. 6. Hypothyroidism. CONSULTATIONS: 1. Neurology. 2. Critical Care. PHYSICAL EXAM: GENERAL: The patient is alert. VITAL SIGNS: Afebrile at 36.6, pulse is 69, respira tory rate is 20. Blood pressure is 149/74. She is saturating 93% on room air. I have seen and eval uated the patient on the day of discharge. HOSPITAL COURSE: The patient is an 82-year-old female, presents to the emergency room on 09/06/2017 with complaints of difficulty speaking, right-sided weakness. She was evaluated and diagnosed with. 1. Acute ischemic stroke. During this hospitalization, the patient did receive tPA and has responde d well. She still has some residual dysphagia as well as aphasia and will require inpatient rehabili tation given her acute weakness. 2. Dysphagia. The patient has continued speech therapy during this hospitalization and is placed on a special diet. She will continue speech therapy at inpatient rehab. 3. History of hypertension. Blood pressure has been stable over the last 24 hours. 4. Diabetes mellitus. Continue patient's previously prescribed medications. 5. Chronic kidney disease. Creatinine is stable. DISPOSITION: I have reviewed with inpatient rehab. The patient will be discharged to inpatient reha b for further therapy and treatment. There are no pending studies. DISCHARGE MEDICATIONS: Please refer to EMR form. The patient has been initiated on aspirin as well as Lipitor. FOLLOW UP: Followup will be with Dr. Hany José of Neurology as well as the patient's primary c are physician. TIME SPENT: I spent greater than 35 minutes in the care, coordination, and management of the patient 's disposition. /[id number]/MODL
[2017-09-12] MEDS ORDERED: LEVOTHYROXINE 75 MCG TAB PO SCH (07:00)
== END 2017-09-10 15:16 | DRG 65 ==
LOC: EDUNIT# → INTOOBSV 09-07 01:00 → F2N 09-07 01:35 → OBSVTOIN 09-07 12:18 → F2N 09-07 13:29 → F3N 09-08 13:15
PROVIDERS: ADMIT Student in an Organized Health Care Education/Training Program; ATTEND Student in an Organized Health Care Education/Training Program
DX: I63.9 Cerebral infarction, unspecified (principal); R47.01 Aphasia; R47.02 Dysphasia; I12.9 Hypertensive chronic kidney disease with stage 1 through stage 4 chronic kidney disease, or unspecified chronic kidney disease; N18.9 Chronic kidney disease, unspecified; E11.9 Type 2 diabetes mellitus without complications; E03.9 Hypothyroidism, unspecified; R29.716 NIHSS score 16; Z92.82 Status post administration of tPA (rtPA) in a different facility within the last 24 hours prior to admission to current facility
CPT/HCPCS: 92507-GN; 92523-GN; 92526-GN; 92610-GN; 97116-GP; 97161-GP; 97165-GO; 97530-GO; 97535-GO; G0008; G8978-GP-CJ; G8979-GP-CI; G8987-GO-CI; G8988-GO-CI; G8996-GN-CK; G8997-GN-CK; G8998-GN-CK; G9162-GN-CM; G9163-GN-CJ; J1815; J3490; Q9967

== ENCOUNTER 2017-09-10 15:41 | Inpatient (IN) | payer OTHER ==
[2017-09-10] MEDS ORDERED: ACETAMINOPHEN 325 MG TAB PO PRN (16:04)
[2017-09-10] MEDS ORDERED: LEVOTHYROXINE 100 MCG TAB PO SCH (16:15)
--- NOTE | 2017-09-10 16:44 | PDOREHIP ---
Admission [facility] - Admission - 3 Day Assessment Period Admission Date/Day 1: 09/10/17 Day 2: 09/11/17 Day 3: 09/12/17 - Active Diagnoses Comorbidities and Co-existing Conditions at Admission: 99972. DM (e.g. diabetic retinopathy, nephropathy, and neuropathy) - Skin Conditions Unhealed Pressure Ulcer (1 or more/Stage 1 or >)-Admission: 0. No
--- NOTE | 2017-09-10 16:44 | PDOREHIP ---
Admission [facility] - Admission - 3 Day Assessment Period Admission Date/Day 1: 09/10/17 Day 2: 09/11/17 Day 3: 09/12/17 - Active Diagnoses Comorbidities and Co-existing Conditions at Admission: 26579. DM (e.g. diabetic retinopathy, nephropathy, and neuropathy) - Skin Conditions Unhealed Pressure Ulcer (1 or more/Stage 1 or >)-Admission: 0. No
--- NOTE | 2017-09-10 16:44 | PDOREHIP ---
Admission [facility] - Admission - 3 Day Assessment Period Admission Date/Day 1: 09/10/17 Day 2: 09/11/17 Day 3: 09/12/17 - Active Diagnoses Comorbidities and Co-existing Conditions at Admission: 54953. DM (e.g. diabetic retinopathy, nephropathy, and neuropathy) - Skin Conditions Unhealed Pressure Ulcer (1 or more/Stage 1 or >)-Admission: 0. No
--- NOTE | 2017-09-10 17:30 | GHP ---
[f rep st] HISTORY AND PHYSICAL POST ADMISSION PHYSICIAN EVALUATION AND REHABILITATION TREATMENT PLAN. DATE OF ADMISSION: 09/10/2017 DATE OF EVALUATION: 09/10/2017. TIME OF EVALUATION: 1555. REFERRING FACILITY: [facility]. IMPAIRMENT GROUP: 1.4. DATE OF ONSET: 09/06/2017. REFERRING PHYSICIAN: Dr. Abraham. CONSULTING PHYSICIANS: She was seen in consultation by Neurology, Dr. Gutierrez and then Dr. José, and by Pulmonary and Critical Care, Dr. Malin. REHABILITATION DIAGNOSIS: Expressive aphasia, status post CVA. ETIOLOGIC DIAGNOSIS: No paresis. HISTORY OF PRESENT ILLNESS: This patient developed symptoms of right-sided weakness and difficulty speaking. This was noted by her son who brought her to the emergency department at [place]. She was within the window for tPA and there she received tPA thrombolysis. Her initial NIH Stroke Scale was 16. She had rapid improvement and during her ambulance ride from [place] to [place], NIH Stroke Scale was documented at 11. When she was seen by the Neurology skin care consultant at [facility], her NIH Stroke Scale was 6. She had rapid improvement in her right-sided weakness, but has persistent difficulty articulating speech. She also had dysphagia and was initially n.p.o. but has since been advanced to a dysphagia 3 diet and thin liquids. She had evaluation including an echocardiogram which showed trace tricuspid regurgitation and mild mitral regurgitation. A bubble study failed to show any intracardiac shunting and there were no embolic sources found. She did not have dysrhythmia on monitoring. She initially had elevated blood pressure, but this improved and she was stable and ready for transfer to inpatient rehabilitation. OTHER STUDIES AND LABS IN THE HOSPITAL: CBC was overall within normal limits. There was very slight anemia after hydration and on the day of discharge, her hematocrit was very slightly low at 36.5. Her hemoglobin was normal at 13. She had a normal PT and PTT. Serum chemistry showed likely dehydration initially with a BUN of 27 and a creatinine of 1.3, and these improved on the day of discharge to a BUN of 20 and a creatinine of 1.2. Her estimated GFR is 43. She had elevated blood sugars and fasting blood sugar on the day of discharge was 123. A lipid panel was checked. Cholesterol was 105, LDL was 70 , HDL was 36. Hemoglobin A1c was 8.4. Aspirin was initiated as stroke prophylaxis. PRECAUTIONS: She has aspiration precautions. ACTIVE COMORBIDITIES: She has diabetes mellitus with manifestation of renal insufficiency. Otherwise, she has no tier 1, tier 2 or tier 3 comorbidities. PAST MEDICAL HISTORY: 1. Diabetes mellitus type 2. 2. Hypothyroidism. 3. Narcolepsy. 4. Glaucoma. PAST SURGICAL HISTORY: She has had a thyroidectomy and she is not sure of the reason. She has had a cholecystectomy, hysterectomy and bilateral foot surgery. PRE-HOSPITAL MEDICATIONS: 1. Atorvastatin. 2. Calcium carbonate. 3. Januvia 50 mg. 4. Lumigan 0.01%. 5. Multivitamin. 6. Methylphenidate 20 mg, which she reports she only takes if she has to do a long drive. 7. Levothyroxine 75 mcg. 8. Vitamin D3. ADMISSION MEDICATIONS: 1. Acetaminophen 650 mg p.o. q.4 hours p.r.n. 2. Aspirin 325 mg p.o. daily. 3. Atorvastatin 40 mg p.o. daily. 4. Levothyroxine 100 mg p.o. every Sunday, Sunday and Sunday and 75 mg p.o. every Sunday, , Sunday and Sunday. 5. Metformin 500 mg daily. 6. Sitagliptin 50 mg p.o. daily. ALLERGIES: There are no known drug allergies. FAMILY HISTORY: Noncontributory. PSYCHOSOCIAL HISTORY: She is a . She lives alone in [place]. Her son and another adult child live nearby. There are a few steps to enter the house and no steps that she has to negotiate while in the house. She is a nonsmoker and does not use alcohol. 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 REVIEW OF SYSTEMS: She denies pain, cough, dyspnea, fevers, chills, recent weight change, nausea, vomiting, constipation, or diarrhea, dysuria or urinary frequency. Neurologically, her son reports that to him she seems cognitively intact. She is able to write. She is quite dysarthric and has expressive aphasia. She appears to understand conversation and questions. PHYSICAL EXAM: Vitals: Blood pressure is 168/96, heart rate is 93, respiratory rate is 16, oxygenation is 90% on room air, temperature is 36.3 degrees centigrade, her weight is 79.1 kg for a body mass index of 28.4. General: this is a well-nourished well-developed woman appears her chronologic age cooperative and in no acute distress. HEENT: extraocular movements are intact, pupils are equal round reactive to light, mucous membranes are moist, dentition is in good condition. Neck is supple. Heart: there is a regular rate and rhythm with no murmurs rubs or gallops. Lungs are clear to auscultation bilaterally. Abdomen is soft, nontender, nondistended, with normoactive bowel sounds and no hepatosplenomegaly. Extremities: there is no cyanosis clubbing or edema. Neurologic: Cranial nerves 2-12 are grossly intact. There is no focal weakness, though her left biceps and triceps sepsis are slightly weaker than her right, and she is right handed. Sensation is intact to light touch. Deep tendon reflexes are 2+ bilaterally at the biceps, patella and Achilles tendons. CURRENT LEVEL OF FUNCTION: Per the pre-admission screen, regarding diet, feeding and swallowing, she was on a dysphagia 3 diet with thin liquids. Medications were crushed in puree and she was noted to have mild to moderate dysphagia. Regarding grooming, she needed voice cues for initiation and cues for thoroughness with brushing her teeth, washing her face and combing her hair. Dressing was accomplished with standby assist to don slippers while seated in a chair. She was continent of bowel and bladder. Transfers were accomplished with contact guard and voice cues. Balance, seated, required standby assistance; standing required contact guard assist. Endurance was fair. She was able to ambulate 200 feet with standby assist. She climbed 10 stairs with standby assist and voice cuing. 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 Regarding cognition, she was noted to have moderate to severe expressive aphasia and mild receptive aphasia. She was noted to have a mild decrease in fine motor control on the right and mild dysmetria. 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 Imaging showed approximately 3 cm area of stroke and approximately 3 cm area of petechial hemorrhage, likely due to use of tPA. Following tPA thrombolysis, she had considerable improvement in her condition, which has been continuing to improve, but she has significant deficits in communication with expressive aphasia and verbal apraxia. Additionally, she has balance issues and decreased fine motor control and dysmetria on the right upper extremity. The etiology of the stroke has not been clearly established with no dysrhythmias on monitoring and no embolic sources on echocardiogram. She has been started on aspirin and otherwise, so far as I can tell, is continuing on the same doses of diabetes medications and atorvastatin as she was taking previously. She had an elevated hemoglobin A1c of 8.4, but given her age and comorbidities, her goal would not be to be lower than 8.0, and given her renal insufficiency, there are limitations in adjusting dosing of the metformin and the sitagliptin. She is appropriate for inpatient rehabilitation where she will benefit from physical and occupational therapy to optimize mobility and activities of daily living, and especially speech and language pathology regarding language and communication as well as mild dysphagia. Her goal is to complete a rehabilitation stay and then return home with supportive services and family support. For a safe discharge, it is anticipated that she will be able to initiate and be independent with grooming, bathing, dressing, bed mobility, transfers and ambulation with the least restrictive device. She will be tolerating a regular diet with resolution of mild dysphagia. She will demonstrate the ability to use compensatory strategies for communication to allow for a safe discharge home alone. She will have therapy with physical therapy, occupational therapy, and speech and language pathology for 60 minutes for each discipline on 5-7 days of the week. Her expected duration of stay is 5-7 days. It is anticipated that upon discharge she will continue to benefit from home health services including speech and language pathology, occupational therapy, and physical therapy. She will also benefit from a stroke support group. PLAN: 1. Expressive aphasia and verbal apraxia, status post left frontal CVA. Speech and language pathology to optimize communication and swallowing. 2. Balance impairment and reduced endurance as well as reduced fine motor coordination and dysmetria of the right upper extremity. PT and OT to optimize mobility and activities of daily living. 3. Diabetes mellitus type 2 with a hemoglobin A1c of 8.4. It is unlikely that there is much to be gained in terms of cardiovascular prophylaxis by attempting to get below 8, and she is limited on the dosing of the 2 medications she is on due to her renal insufficiency. She will have a dietary consult. 4. Renal insufficiency, likely diabetic. If she proves to have elevated blood pressure when she is past the duration of permissive hypertension, consideration will be given to initiating an LEEANN inhibitor or angiotensin receptor zechariah with monitoring of her renal function. 5. Hypothyroidism with history of thyroidectomy. Continue levothyroxine supplementation. 6. Dyslipidemia. It appears to be well controlled. Continue atorvastatin. 7. Narcolepsy. Son reports that she only used methylphenidate when she had a long drive; for instance to drive from [place] to [place] to visit family. She will be observed regarding alertness and if reduced alertness compromises ability to participate in therapy, will consider initiating methylphenidate. 8. Question of glaucoma. She was not discharged from the hospital on any ophthalmic medications. However, per the ED note, she was using Lumigan. Will enquire further of the patient and her family. 9. Secondary stroke prophylaxis. Continue aspirin, atorvastatin and glycemic control. Reviewing CT angiography, she has extensive atherosclerotic features so it could be that Neurology assessed this stroke to be atherosclerotic rather than cryptogenic. There will be further discussion with Neurology regarding whether she is a candidate for 30 day cardiac monitoring. Followup, per hospital discharge orders, with her primary care provider as well as Neurologist, Dr. Feliciano José. /[id number]/MODL MTDD
[2017-09-11] MEDS ORDERED: LEVOTHYROXINE 100 MCG TAB ONE (05:17)
[2017-09-11] MEDS ORDERED: SITAGLIPTIN PHOSPHATE 50 MG PO SCH (09:00)
[2017-09-11] MEDS: ASPIRIN 325 MG TAB PO SCH (09:18)
[2017-09-11] MEDS: ATORVASTATIN CALCIUM 40 MG TAB PO SCH (09:18)
[2017-09-11] MEDS: metFORMIN HCL 500 MG TAB PO SCH (09:18)
[2017-09-11] MEDS ORDERED: LEVOTHYROXINE 100 MCG TAB PO SCH (10:00)
--- NOTE | 2017-09-11 12:53 | SOAPPROG ---
SOAP Progress Note Assessment/Plan: Assessment: 82-year-old woman status post 3 cm left posterior superior frontal CVA 2016 status post tPA, with petechial hemorrhagic conversion: Expressive aphasia and verbal apraxia, status post left frontal CVA. * Speech and language pathology to optimize communication and swallowing. Balance impairment and reduced endurance as well as reduced fine motor coordination and dysmetria of the right upper extremity. * PT and OT to optimize mobility and activities of daily living. Diabetes mellitus type 2 with a hemoglobin A1c of 8.4. * Unlikely that there is much to be gained in terms of cardiovascular prophylaxis by attempting to get below 8, and she is limited on the dosing of the 2 medications she is on due to her renal insufficiency. She will have a dietary consult. Permissive hypertension. * Continue until 10 days post CVA, 09/17/2017. Renal insufficiency, likely diabetic. * Consider initiating Obdulio inhibitor or ARB depending on blood pressure. Hypothyroidism with history of thyroidectomy. * Continue levothyroxine supplementation. Dyslipidemia. It appears to be well controlled. * Continue atorvastatin. Glaucoma. 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 * Son reports that she only used methylphenidate when she had a long drive; for instance to drive from [place] to [place] to visit family. * Observe alertness and if reduced alertness compromises ability to participate in therapy, will consider initiating methylphenidate. Secondary stroke prophylaxis. * Continue aspirin, atorvastatin and glycemic control. * Reviewing CT angiography, she has extensive atherosclerotic features so it could be that Neurology assessed this stroke to be atherosclerotic rather than cryptogenic. There will be further discussion with Neurology regarding whether she is a candidate for [address] José will be available 09/12/2017. Followup, per hospital discharge orders, with her primary care provider as well as Neurologist, Dr. Feliciano José. 09/11/17 14:45 Subjective: No complaints. Slept well, not in pain, no cough or dyspnea, no fevers or chills. Confirms that she was taking the matter prostate drops in the evening and timolol drops in the morning for glaucoma. Objective: Vital Signs Temp Pulse Resp BP Pulse Ox 36.7 C 60 16 150/69 H 91 L 09/11/17 08:00 09/11/17 08:00 09/11/17 08:00 09/11/17 08:00 09/11/17 08:00 09/10/17 09/11/17 09/12/17 05:59 05:59 05:59 Intake Total 440 420 Output Total 300 Balance 140 420 Physical Exam - Physical Exam General Appearance: WD/WN, alert, no apparent distress Respiratory: normal breath sounds, No crackles, No rhonchi, No wheezing Cardiac/Chest: regular rate, rhythm, No diastolic murmur, No systolic murmur Skin: normal color, warm/dry Neuro/Psych: no motor/sensory deficits, alert, normal mood/affect, oriented x 3 , aphasia (Expressive. Speech is slow and laborious.), other (Able to write but poor handwriting which she reports is not how she road prior to the stroke.) ICD10 Worksheet Patient Problems: Problems Problem Status Onset Acute ischemic stroke Acute
[2017-09-11] MEDS: BIMATOPROST 0.01% 2.5 ML OPHT.BTL EACHEYE SCH (20:00)
[2017-09-12] MEDS: LEVOTHYROXINE 75 MCG TAB PO SCH (05:36)
[2017-09-12] MEDS: ATORVASTATIN CALCIUM 40 MG TAB PO SCH (08:31)
[2017-09-12] MEDS: ASPIRIN 325 MG TAB PO SCH (08:31)
[2017-09-12] MEDS: metFORMIN HCL 500 MG TAB PO SCH (08:32)
[2017-09-12] MEDS: TIMOLOL 0.25% 5 ML OPHT.BTL EACHEYE SCH (08:33)
[2017-09-12] MEDS ORDERED: LEVOTHYROXINE 75 MCG TAB PO SCH (10:00)
--- NOTE | 2017-09-12 12:49 | SOAPPROG ---
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 * Primarily has oral apraxia but COAL SHOVELER also notes word-finding difficulty consistent with expressive aphasia. Discoordinated Ling will function and hike pocketing on the right of which she is unaware. Careful oral care after meals. Continue COAL SHOVELER to optimize communication and swallowing. Balance impairment and reduced endurance as well as reduced fine motor coordination and dysmetria of the right upper extremity. * Initial functional independence measure 95 on 09/12/2017. * Has advanced to independent in the room. Independent with ADLs. Ambulated greater than 400 feet with no device and supervision. Negotiated stairs independently with 1 rail. PT and OT to optimize mobility and activities of daily living. Diabetes mellitus type 2 with a hemoglobin A1c of 8.4. * Unlikely that there is much to be gained in terms of cardiovascular prophylaxis by attempting to get below 8, and she is limited on the dosing of the 2 medications she is on due to her renal insufficiency. She will have a dietary consult. * 1600 kilocalorie per day ADA diet. Permissive hypertension. * Continue until 10 days post CVA, 09/17/2017. Renal insufficiency, likely diabetic. * Consider initiating Obdulio inhibitor or ARB depending on blood pressure. Hypothyroidism with history of thyroidectomy. * Continue levothyroxine supplementation. Dyslipidemia. It appears to be well controlled. * Continue atorvastatin. Glaucoma. 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 * Son reports that she only used methylphenidate when she had a long drive; for instance to drive from [place] to [place] to visit family. * Observe alertness and if reduced alertness compromises ability to participate in therapy, will consider initiating methylphenidate. Secondary stroke prophylaxis. * Continue aspirin, atorvastatin and glycemic control. * Discussed with neurologist Dr. José. Refer to Cardiology after discharge for a 30 day event monitor to rule out occult atrial fibrillation. Attended staffing, 15 minutes. Discussed with case management, dietitian, nursing, PT, OT, COAL SHOVELER. Son and daughter are local and asked us park and available to help. Discharge on 09/14/2017. Will have home OT once 2 visits for safety and home COAL SHOVELER. Followup, per hospital discharge orders, with her primary care provider as well as Neurologist, Dr. Feliciano José. 09/13/17 12:11 Subjective: No complaints. Sleeping well. Not in pain. No cough or dyspnea. No fevers or chills. Objective: Vital Signs Temp Pulse Resp BP Pulse Ox 36.8 C 64 15 162/78 H 92 09/12/17 05:50 09/12/17 08:36 09/12/17 05:50 09/12/17 08:36 09/12/17 05:50 09/11/17 09/12/17 09/13/17 05:59 05:59 05:59 Intake Total 440 1300 236 Output Total 300 650 Balance 140 650 236 Physical Exam - Physical Exam General Appearance: WD/WN, alert, no apparent distress Respiratory: normal breath sounds, No crackles, No rhonchi, No wheezing Cardiac/Chest: regular rate, rhythm, No diastolic murmur, No systolic murmur Skin: normal color, warm/dry Neuro/Psych: no motor/sensory deficits, alert, normal mood/affect, oriented x 3 , speech abnormalities (Oral apraxia) ICD10 Worksheet Patient Problems: Problems Problem Status Onset Acute ischemic stroke Acute
--- NOTE | 2017-09-12 12:49 | SOAPPROG ---
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 * Primarily has oral apraxia but SHUCKER also notes word-finding difficulty consistent with expressive aphasia. Discoordinated Ling will function and hike pocketing on the right of which she is unaware. Careful oral care after meals. Continue SHUCKER to optimize communication and swallowing. Balance impairment and reduced endurance as well as reduced fine motor coordination and dysmetria of the right upper extremity. * Initial functional independence measure 95 on 09/12/2017. * Has advanced to independent in the room. Independent with ADLs. Ambulated greater than 400 feet with no device and supervision. Negotiated stairs independently with 1 rail. PT and OT to optimize mobility and activities of daily living. Diabetes mellitus type 2 with a hemoglobin A1c of 8.4. * Unlikely that there is much to be gained in terms of cardiovascular prophylaxis by attempting to get below 8, and she is limited on the dosing of the 2 medications she is on due to her renal insufficiency. She will have a dietary consult. * 1600 kilocalorie per day ADA diet. Permissive hypertension. * Continue until 10 days post CVA, 09/17/2017. Renal insufficiency, likely diabetic. * Consider initiating Obdulio inhibitor or ARB depending on blood pressure. Hypothyroidism with history of thyroidectomy. * Continue levothyroxine supplementation. Dyslipidemia. It appears to be well controlled. * Continue atorvastatin. Glaucoma. 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 * Son reports that she only used methylphenidate when she had a long drive; for instance to drive from [place] to [place] to visit family. * Observe alertness and if reduced alertness compromises ability to participate in therapy, will consider initiating methylphenidate. Secondary stroke prophylaxis. * Continue aspirin, atorvastatin and glycemic control. * Discussed with neurologist Dr. José. Refer to Cardiology after discharge for a 30 day event monitor to rule out occult atrial fibrillation. Attended staffing, 15 minutes. Discussed with case management, dietitian, nursing, PT, OT, SHUCKER. Son and daughter are local and asked us park and available to help. Discharge on 09/14/2017. Will have home OT once 2 visits for safety and home SHUCKER. Followup, per hospital discharge orders, with her primary care provider as well as Neurologist, Dr. Feliciano José. 09/13/17 12:11 Subjective: No complaints. Sleeping well. Not in pain. No cough or dyspnea. No fevers or chills. Objective: Vital Signs Temp Pulse Resp BP Pulse Ox 36.8 C 64 15 162/78 H 92 09/12/17 05:50 09/12/17 08:36 09/12/17 05:50 09/12/17 08:36 09/12/17 05:50 09/11/17 09/12/17 09/13/17 05:59 05:59 05:59 Intake Total 440 1300 236 Output Total 300 650 Balance 140 650 236 Physical Exam - Physical Exam General Appearance: WD/WN, alert, no apparent distress Respiratory: normal breath sounds, No crackles, No rhonchi, No wheezing Cardiac/Chest: regular rate, rhythm, No diastolic murmur, No systolic murmur Skin: normal color, warm/dry Neuro/Psych: no motor/sensory deficits, alert, normal mood/affect, oriented x 3 , speech abnormalities (Oral apraxia) ICD10 Worksheet Patient Problems: Problems Problem Status Onset Acute ischemic stroke Acute
--- NOTE | 2017-09-12 12:49 | SOAPPROG ---
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 * Primarily has oral apraxia but STUDIO OPERATIONS MANAGER also notes word-finding difficulty consistent with expressive aphasia. Discoordinated Ling will function and hike pocketing on the right of which she is unaware. Careful oral care after meals. Continue STUDIO OPERATIONS MANAGER to optimize communication and swallowing. Balance impairment and reduced endurance as well as reduced fine motor coordination and dysmetria of the right upper extremity. * Initial functional independence measure 95 on 09/12/2017. * Has advanced to independent in the room. Independent with ADLs. Ambulated greater than 400 feet with no device and supervision. Negotiated stairs independently with 1 rail. PT and OT to optimize mobility and activities of daily living. Diabetes mellitus type 2 with a hemoglobin A1c of 8.4. * Unlikely that there is much to be gained in terms of cardiovascular prophylaxis by attempting to get below 8, and she is limited on the dosing of the 2 medications she is on due to her renal insufficiency. She will have a dietary consult. * 1600 kilocalorie per day ADA diet. Permissive hypertension. * Continue until 10 days post CVA, 09/17/2017. Renal insufficiency, likely diabetic. * Consider initiating Obdulio inhibitor or ARB depending on blood pressure. Hypothyroidism with history of thyroidectomy. * Continue levothyroxine supplementation. Dyslipidemia. It appears to be well controlled. * Continue atorvastatin. Glaucoma. 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 * Son reports that she only used methylphenidate when she had a long drive; for instance to drive from [place] to [place] to visit family. * Observe alertness and if reduced alertness compromises ability to participate in therapy, will consider initiating methylphenidate. Secondary stroke prophylaxis. * Continue aspirin, atorvastatin and glycemic control. * Discussed with neurologist Dr. José. Refer to Cardiology after discharge for a 30 day event monitor to rule out occult atrial fibrillation. Attended staffing, 15 minutes. Discussed with case management, dietitian, nursing, PT, OT, STUDIO OPERATIONS MANAGER. Son and daughter are local and asked us park and available to help. Discharge on 09/14/2017. Will have home OT once 2 visits for safety and home STUDIO OPERATIONS MANAGER. Followup, per hospital discharge orders, with her primary care provider as well as Neurologist, Dr. Feliciano José. 09/13/17 12:11 Subjective: No complaints. Sleeping well. Not in pain. No cough or dyspnea. No fevers or chills. Objective: Vital Signs Temp Pulse Resp BP Pulse Ox 36.8 C 64 15 162/78 H 92 09/12/17 05:50 09/12/17 08:36 09/12/17 05:50 09/12/17 08:36 09/12/17 05:50 09/11/17 09/12/17 09/13/17 05:59 05:59 05:59 Intake Total 440 1300 236 Output Total 300 650 Balance 140 650 236 Physical Exam - Physical Exam General Appearance: WD/WN, alert, no apparent distress Respiratory: normal breath sounds, No crackles, No rhonchi, No wheezing Cardiac/Chest: regular rate, rhythm, No diastolic murmur, No systolic murmur Skin: normal color, warm/dry Neuro/Psych: no motor/sensory deficits, alert, normal mood/affect, oriented x 3 , speech abnormalities (Oral apraxia) ICD10 Worksheet Patient Problems: Problems Problem Status Onset Acute ischemic stroke Acute
[2017-09-12 19:29] VITALS: RESP 16
[2017-09-12] MEDS: BIMATOPROST 0.01% 2.5 ML OPHT.BTL EACHEYE SCH (20:16)
[2017-09-13] MEDS: LEVOTHYROXINE 75 MCG TAB PO SCH (06:35)
[2017-09-13] MEDS: ATORVASTATIN CALCIUM 40 MG TAB PO SCH (08:48)
[2017-09-13] MEDS: ASPIRIN 325 MG TAB PO SCH (08:48)
[2017-09-13] MEDS: metFORMIN HCL 500 MG TAB PO SCH (08:48)
[2017-09-13] MEDS: TIMOLOL 0.25% 5 ML OPHT.BTL EACHEYE SCH (08:48)
--- NOTE | 2017-09-13 13:22 | SOAPPROG ---
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 * Primarily has oral apraxia but ENTERPRISE ENGINEER also notes word-finding difficulty consistent with expressive aphasia. Discoordinated lingual function and pocketing on the right of which she is unaware. Careful oral care after meals. Continue ENTERPRISE ENGINEER to optimize communication and swallowing. Balance impairment and reduced endurance as well as reduced fine motor coordination and dysmetria of the right upper extremity. * Initial functional independence measure 95 on 09/12/2017. * Has advanced to independent in the room. Independent with ADLs. Ambulated greater than 400 feet with no device and supervision. Negotiated stairs independently with 1 rail. PT and OT to optimize mobility and activities of daily living. Diabetes mellitus type 2 with a hemoglobin A1c of 8.4. * Unlikely that there is much to be gained in terms of cardiovascular prophylaxis by attempting to get below 8, and she is limited on the dosing of the 2 medications she is on due to her renal insufficiency. She will have a dietary consult. * 1600 kilocalorie per day ADA diet. Permissive hypertension. * Continue until 10 days post CVA, 09/17/2017. Renal insufficiency, likely diabetic. * Consider initiating LEEANN inhibitor or ARB depending on blood pressure. Hypothyroidism with history of thyroidectomy. * Continue levothyroxine supplementation. Dyslipidemia. It appears to be well controlled. * Continue atorvastatin. Glaucoma. 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 * Son reports that she only used methylphenidate when she had a long drive; for instance to drive from [place] to [place] to visit family. * Observe alertness and if reduced alertness compromises ability to participate in therapy, will consider initiating methylphenidate. Secondary stroke prophylaxis. * Continue aspirin, atorvastatin and glycemic control. * Discussed with neurologist Dr. José. Refer to Cardiology after discharge for a 30 day event monitor to rule out occult atrial fibrillation. Son and daughter are local in [place] and available to help. Discharge on . Will have home OT once 2 visits for safety and home ENTERPRISE ENGINEER. Followup, per hospital discharge orders, with her primary care provider Dr. Bruner , Cardiology, and Neurologist, Dr. Feliciano José. 09/13/17 13:20 Subjective: No complaints. Slept okay but not great. Not in pain. No fevers, chills, cough, dyspnea. Objective: Vital Signs Temp Pulse Resp BP Pulse Ox 36.7 C 59 L 16 147/69 H 94 09/13/17 06:38 09/13/17 06:38 09/13/17 06:38 09/13/17 06:38 09/13/17 06:38 09/12/17 09/13/17 09/14/17 05:59 05:59 05:59 Intake Total 1300 1076 700 Output Total 650 500 Balance 650 576 700 Physical Exam - Physical Exam General Appearance: WD/WN, alert, no apparent distress Respiratory: normal breath sounds, No crackles, No rhonchi, No wheezing Cardiac/Chest: regular rate, rhythm, No diastolic murmur, No systolic murmur Skin: normal color, warm/dry Neuro/Psych: no motor/sensory deficits, alert, normal mood/affect, oriented x 3 , aphasia (Expressive), speech abnormalities (Dysarthric) ICD10 Worksheet Patient Problems: Problems Problem Status Onset Acute ischemic stroke Acute
--- NOTE | 2017-09-13 13:22 | SOAPPROG ---
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 * Primarily has oral apraxia but WELLNESS CONSULTANT also notes word-finding difficulty consistent with expressive aphasia. Discoordinated lingual function and pocketing on the right of which she is unaware. Careful oral care after meals. Continue WELLNESS CONSULTANT to optimize communication and swallowing. Balance impairment and reduced endurance as well as reduced fine motor coordination and dysmetria of the right upper extremity. * Initial functional independence measure 95 on 09/12/2017. * Has advanced to independent in the room. Independent with ADLs. Ambulated greater than 400 feet with no device and supervision. Negotiated stairs independently with 1 rail. PT and OT to optimize mobility and activities of daily living. Diabetes mellitus type 2 with a hemoglobin A1c of 8.4. * Unlikely that there is much to be gained in terms of cardiovascular prophylaxis by attempting to get below 8, and she is limited on the dosing of the 2 medications she is on due to her renal insufficiency. She will have a dietary consult. * 1600 kilocalorie per day ADA diet. Permissive hypertension. * Continue until 10 days post CVA, 09/17/2017. Renal insufficiency, likely diabetic. * Consider initiating LEEANN inhibitor or ARB depending on blood pressure. Hypothyroidism with history of thyroidectomy. * Continue levothyroxine supplementation. Dyslipidemia. It appears to be well controlled. * Continue atorvastatin. Glaucoma. 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 * Son reports that she only used methylphenidate when she had a long drive; for instance to drive from [place] to [place] to visit family. * Observe alertness and if reduced alertness compromises ability to participate in therapy, will consider initiating methylphenidate. Secondary stroke prophylaxis. * Continue aspirin, atorvastatin and glycemic control. * Discussed with neurologist Dr. José. Refer to Cardiology after discharge for a 30 day event monitor to rule out occult atrial fibrillation. Son and daughter are local in [place] and available to help. Discharge on . Will have home OT once 2 visits for safety and home WELLNESS CONSULTANT. Followup, per hospital discharge orders, with her primary care provider Dr. Bruner , Cardiology, and Neurologist, Dr. Feliciano José. 09/13/17 13:20 Subjective: No complaints. Slept okay but not great. Not in pain. No fevers, chills, cough, dyspnea. Objective: Vital Signs Temp Pulse Resp BP Pulse Ox 36.7 C 59 L 16 147/69 H 94 09/13/17 06:38 09/13/17 06:38 09/13/17 06:38 09/13/17 06:38 09/13/17 06:38 09/12/17 09/13/17 09/14/17 05:59 05:59 05:59 Intake Total 1300 1076 700 Output Total 650 500 Balance 650 576 700 Physical Exam - Physical Exam General Appearance: WD/WN, alert, no apparent distress Respiratory: normal breath sounds, No crackles, No rhonchi, No wheezing Cardiac/Chest: regular rate, rhythm, No diastolic murmur, No systolic murmur Skin: normal color, warm/dry Neuro/Psych: no motor/sensory deficits, alert, normal mood/affect, oriented x 3 , aphasia (Expressive), speech abnormalities (Dysarthric) ICD10 Worksheet Patient Problems: Problems Problem Status Onset Acute ischemic stroke Acute
--- NOTE | 2017-09-13 13:22 | SOAPPROG ---
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 * Primarily has oral apraxia but RECRUITER MANAGER also notes word-finding difficulty consistent with expressive aphasia. Discoordinated lingual function and pocketing on the right of which she is unaware. Careful oral care after meals. Continue RECRUITER MANAGER to optimize communication and swallowing. Balance impairment and reduced endurance as well as reduced fine motor coordination and dysmetria of the right upper extremity. * Initial functional independence measure 95 on 09/12/2017. * Has advanced to independent in the room. Independent with ADLs. Ambulated greater than 400 feet with no device and supervision. Negotiated stairs independently with 1 rail. PT and OT to optimize mobility and activities of daily living. Diabetes mellitus type 2 with a hemoglobin A1c of 8.4. * Unlikely that there is much to be gained in terms of cardiovascular prophylaxis by attempting to get below 8, and she is limited on the dosing of the 2 medications she is on due to her renal insufficiency. She will have a dietary consult. * 1600 kilocalorie per day ADA diet. Permissive hypertension. * Continue until 10 days post CVA, 09/17/2017. Renal insufficiency, likely diabetic. * Consider initiating LEEANN inhibitor or ARB depending on blood pressure. Hypothyroidism with history of thyroidectomy. * Continue levothyroxine supplementation. Dyslipidemia. It appears to be well controlled. * Continue atorvastatin. Glaucoma. 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 * Son reports that she only used methylphenidate when she had a long drive; for instance to drive from [place] to [place] to visit family. * Observe alertness and if reduced alertness compromises ability to participate in therapy, will consider initiating methylphenidate. Secondary stroke prophylaxis. * Continue aspirin, atorvastatin and glycemic control. * Discussed with neurologist Dr. José. Refer to Cardiology after discharge for a 30 day event monitor to rule out occult atrial fibrillation. Son and daughter are local in [place] and available to help. Discharge on . Will have home OT once 2 visits for safety and home RECRUITER MANAGER. Followup, per hospital discharge orders, with her primary care provider Dr. Bruner , Cardiology, and Neurologist, Dr. Feliciano José. 09/13/17 13:20 Subjective: No complaints. Slept okay but not great. Not in pain. No fevers, chills, cough, dyspnea. Objective: Vital Signs Temp Pulse Resp BP Pulse Ox 36.7 C 59 L 16 147/69 H 94 09/13/17 06:38 09/13/17 06:38 09/13/17 06:38 09/13/17 06:38 09/13/17 06:38 09/12/17 09/13/17 09/14/17 05:59 05:59 05:59 Intake Total 1300 1076 700 Output Total 650 500 Balance 650 576 700 Physical Exam - Physical Exam General Appearance: WD/WN, alert, no apparent distress Respiratory: normal breath sounds, No crackles, No rhonchi, No wheezing Cardiac/Chest: regular rate, rhythm, No diastolic murmur, No systolic murmur Skin: normal color, warm/dry Neuro/Psych: no motor/sensory deficits, alert, normal mood/affect, oriented x 3 , aphasia (Expressive), speech abnormalities (Dysarthric) ICD10 Worksheet Patient Problems: Problems Problem Status Onset Acute ischemic stroke Acute
[2017-09-13] MEDS ORDERED: NYSTATIN POWDER 15 GM BTL TP SCH (16:00)
[2017-09-13 19:40] VITALS: O2SAT 92
[2017-09-13] MEDS: BIMATOPROST 0.01% 2.5 ML OPHT.BTL EACHEYE SCH (20:28)
[2017-09-14] MEDS: LEVOTHYROXINE 75 MCG TAB PO SCH (05:33)
[2017-09-14 05:47] VITALS: BP 136/76; PULSE 58; TEMP 97.5
[2017-09-14] MEDS: ATORVASTATIN CALCIUM 40 MG TAB PO SCH (08:29)
[2017-09-14] MEDS: ASPIRIN 325 MG TAB PO SCH (08:29)
[2017-09-14] MEDS: metFORMIN HCL 500 MG TAB PO SCH (08:29)
[2017-09-14] MEDS: TIMOLOL 0.25% 5 ML OPHT.BTL EACHEYE SCH (08:48)
--- NOTE | 2017-09-14 13:54 | GDS ---
[f rep st] DISCHARGE SUMMARY ADMITTING DIAGNOSIS: Cerebrovascular accident with expressive dysphagia. DISCHARGE DIAGNOSIS: Cerebrovascular accident with expressive dysphagia. CONSULTATIONS: None. PROCEDURES: None. COMPLICATIONS: None. HISTORY/HOSPITAL COURSE: This patient came to [facility] inpatient rehabilitation from [facility], where she was admitted on 09/06/2017. She had developed right-sided weakness and difficulty speaking, which was noted by her son who brought her to the emergency department at [place]. She received tPA, thrombolysis and was transferred to [facility]. She had rapid improvement in her right-sided weakness, but had persistent difficulty articulating speech. She also had dysphagia and was initially n.p.o. she was subsequently advanced to dysphagia 3 diet and thin liquids. Echocardiogram in the hospital showed trace tricuspid regurgitation and mild mitral regurgitation. A bubble study failed to show any intracardiac shunting, and there were no embolic sources found. There were no dysrhythmias seen on telemonitoring. She was stabilized and discharged for rehabilitation. Her home atorvastatin dose was increased, and she was started on aspirin at 325 mg daily. She did well in rehabilitation. Her initial functional independence measure was 95 on 09/12/2017, which is consistent with assisted living level of function. She was able to be independent in her room and she was independent with activities of daily living. She was able to ambulate greater than 400 feet with no device and supervision. She was able to negotiate stairs independently with 1 rail. She continued to have need for speech and language pathology. She had oral apraxia, but also word-finding difficulty consistent with expressive aphasia. She had discoordinated lingual functioning and pocketing on the right side of her mouth, of which she was unaware. She required careful oral care after meals. She has diabetes mellitus type 2. Hemoglobin A1c in the hospital was 8.4. She was on metformin and sitagliptin, both dosed for her renal insufficiency, with no room to increase the doses. It seemed unlikely that there would be much to be gained in terms of secondary stroke prophylaxis from attempting to get her A1c below 8.4. Decision regarding additional hypoglycemics will be left to primary care after discharge. Dietitian recommended a 1600 kilocalorie per day ADA diet. Permissive hypertension was to continue until 10 days post CVA, which would be 09/17/2017. She was on no antihypertensives and her blood pressure was occasionally elevated, with the highest reading during her stay being 168/96 on the day of admission. Subsequently, her blood pressure was generally moderately elevated in the 130s to 140s systolic, with diastolic mostly not being elevated. LABS AND STUDIES: During her stay, glucose monitoring revealed blood sugars in the 129 to 157 range. None of these readings were fasting however. PHYSICAL EXAM: VITAL SIGNS: On the day of discharge, blood pressure is 136/76 , heart rate is 58, respiratory rate is 16, oxygen saturation is 92% on room air , temperature is 36.4 degrees centigrade. GENERAL: This is a well-nourished, well-developed, elderly woman, sitting in a chair, cooperative, and in no acute distress. HEART: Regular rate and rhythm with no murmurs, rubs, or gallops. LUNGS: Clear to auscultation bilaterally. ABDOMEN: Benign. EXTREMITIES: There is no edema. NEUROLOGIC: She is alert and oriented x3. She is markedly dysarthric and has occasional word-finding difficulty. Otherwise, cranial nerves 2-12 are grossly intact. There is no focal weakness, and sensation is intact to light touch. She was also seen ambulating in the villegas with a normal gait and no assistance. DISCHARGE PLAN: Condition upon discharge is good. Activity is ad lisandra, but she should not be driving. Diet is ADA 1600 kilocalories per day, normal diet texture. DATE OF NEXT APPOINTMENT: She has followup with her primary care provider, Dr. Katelynn Bruner, on 09/18/2017. She will follow up with neurologist Dr. Feliciano José, and she will follow up with [facility] in [place] for placement of a athletic monitor to rule out occult atrial fibrillation. MEDICATIONS ON DISCHARGE: 1. Aspirin 325 mg p.o. daily. 2. Atorvastatin 40 mg p.o. daily. 3. Bimatoprost 0.01% 1 drop each eye at bedtime. 4. Levothyroxine 75 mcg on Sunday, , Sunday and Sunday; and 100 mcg on Sunday, Sunday and Sunday. 5. Metformin 500 mg p.o. daily. 6. Sitagliptin 50 mg p.o. daily. 7. Timolol 0.25% 1 drop each eye daily. ISSUES TO BE ADDRESSED AT FOLLOWUP: 1. Functional status in the home. She will have a home OT visit regarding safety at home, and she will have home speech and language pathology. 2. Permissive hypertension. If blood pressure remains elevated after 2016, consider initiating treatment. First line would probably be an LEEANN inhibitor or ARB, due to diabetes and renal insufficiency. 3. Chronic conditions of hypothyroidism and dyslipidemia. She can follow up with primary care. /[id number]/MODL MTDD
--- NOTE | 2017-09-14 16:46 | PDOREHIP ---
Admission [facility] - Admission - 3 Day Assessment Period Admission Date/Day 1: 09/10/17 Day 2: 09/11/17 Day 3: 09/12/17 Discharge [facility] - Discharge - 3 Day Assessment Period 2 Days Prior to Anticipated Discharge Date: 09/12/17 1 Day Prior to Anticipated Discharge Date: 09/13/17 Anticipated Discharge Date: 09/14/17 - Discharge Skin Conditions Unhealed Pressure Ulcer (1 or more/Stage 1 or >)-Discharge: 0. No
[2017-09-16] MEDS ORDERED: LEVOTHYROXINE 100 MCG TAB PO SCH (06:00)
== END 2017-09-14 13:30 | disposition home health service (06) | DRG 57 ==
LOC: BREH 15:41
PROVIDERS: ADMIT Internal Medicine; ATTEND Internal Medicine
PROC: F08Z7ZZ Vocational Activities and Functional Community or Work Reintegration Skills Treatment (ICD-10-PCS; principal; 2017-09-10)
PROC: F07M3ZZ Motor Function Treatment of Musculoskeletal System - Whole Body (ICD-10-PCS; principal; 2017-09-10)
PROC: F0636ZZ Communicative/Cognitive Integration Skills Treatment of Neurological System - Whole Body (ICD-10-PCS; principal; 2017-09-10)
DX: I69.320 Aphasia following cerebral infarction (principal); I69.390 Apraxia following cerebral infarction; I69.391 Dysphagia following cerebral infarction; I69.398 Other sequelae of cerebral infarction; R26.81 Unsteadiness on feet; R27.8 Other lack of coordination; I69.10 Unspecified sequelae of nontraumatic intracerebral hemorrhage; E11.22 Type 2 diabetes mellitus with diabetic chronic kidney disease; E03.9 Hypothyroidism, unspecified; H40.9 Unspecified glaucoma; E78.5 Hyperlipidemia, unspecified; G47.419 Narcolepsy without cataplexy; Z92.82 Status post administration of tPA (rtPA) in a different facility within the last 24 hours prior to admission to current facility
CPT/HCPCS: 92507-GN; 92522-GN; 92526-GN; 92610-GN; 97110-GO; 97110-GP; 97112-GO; 97116-GP; 97161-GP; 97165-GO; 97530-GO; 97530-GP; 97532-GO; 97535-GO